=== PATIENT | female | born 1980 | race Caucasian/White ===

== ENCOUNTER 2016-12-24 02:18 | Inpatient (IN) | payer SELFPAY ==
[~2016-12-24] VITALS: Ht 152.4 cm; Wt 105.0 kg
[2016-12-24] VITALS (11 sets, daily range): BP systolic 113–145; BP diastolic 68–81
[2016-12-24] MEDS ORDERED: PENICILLIN G POTASSIUM IV 5 MU in D5W MINI-BAG PLUS 100 ML IV STA (02:34)
[2016-12-24] MEDS ORDERED: OXYTOCIN 30 UNITS IN 0.9% NaCl 500ML IV BAG (J2590) As Ordered ONE (02:50)
[2016-12-24 03:02] LABS: BASO % 0.2 % (0.0-1.0); EOS # 0.1 K/mm3 (0.0-0.50); EOS % 1.5 % (0.0-3.0); LARGE UNSTAINED CELL # 0.3 K/mm3 (0.0-0.4); LARGE UNSTAINED CELL % 4.1 % (0.0-4.0); LYMPH # 1.5 K/mm3 (1.5-4.5); LYMPH % 21.9 % (24.0-44.0); MEAN CORPUSCULAR HEMOGLOBIN 31.7 pg (27.0-33.0); MEAN CORPUSCULAR HGB CONC 35.5 g/dl (32.0-36.5); MEAN CORPUSCULAR VOLUME 89.1 fl (80.0-96.0); MONO # 0.3 K/mm3 (0.0-0.8); MONO % 4.7 % (0.0-5.0); NEUTROPHILS # 4.8 K/mm3 (1.8-7.7); NEUTROPHILS % 67.6 % (36.0-66.0); PLATELET COUNT, AUTOMATED 213 k/mm3 (150-450)
[2016-12-24 03:41] LABS: CONTROL LINE INT CTR LINE PRESENT; HIV SCRN NEGATIVE (NEGATIVE); HIV SCRN1 NEGATIVE (NEGATIVE)
[2016-12-24] MEDS ORDERED: LACTATED RINGER'S 1000 ML IV STA (05:48)
[2016-12-24] MEDS ORDERED: OXYTOCIN INJ 10 UNITS/ML VIAL (J2590) As Ordered ONE ×2 (06:00→06:01)
[2016-12-24] MEDS ORDERED: BICITRA 30ML SOLN UDC PO ONE (06:00)
[2016-12-24] MEDS ORDERED: MORPHINE PRES-FREE INJ 10 MG/10 ML VIAL (J2274) As Ordered ONE (06:01)
--- NOTE | 2016-12-24 06:17 | HPE ---
DATE OF ADMISSION: 12/24/2016 36-year-old, (G) 17, para (P) 11, female 39 and 5/7 weeks gestation by last menstrual period (LMP) plus ultrasound who presents with spontaneous loss of fluid on the morning of admission. She began to contract. The contractions became more intense. The patient is Bhanu and has a history of prior section for her first . The only reason she presented to the hospital for delivery is due to an estimated weight of 10 pounds by a recent ultrasound. She does not think she is capable of delivering a baby that big. COURSE: The patient has had minimal care. She claims to have had an ultrasound in [place] four days prior to admission. She was told the baby's estimated weight was 10 pounds. There is no record of any ultrasound at the hospital in [place]. MEDICAL HISTORY: Noncontributory. SURGERIES: section times one. ALLERGIES: No known allergies. SOCIAL HISTORY: The patient is [facility]. She lives in [place], [place], with her and family. FAMILY HISTORY: Noncontributory. PHYSICAL EXAMINATION: Blood pressure 130/78. Pulse 84. She appears mildly uncomfortable. HEAD AND NECK EXAM: Normal. LUNGS: Clear. HEART: Regular rate and rhythm. ABDOMEN: Nontender. Gravid. heart tones Category 1. Contractions every 5 minutes. STERILE VAGINAL EXAM: Grossly ruptured of clear fluid. Cervix 5 cm, 100% effaced, -2 station, vertex. EXTREMITIES: Nontender. LABS: No labs done. ASSESSMENT: 36-year-old, G17, P11 female at 39 and 5/7 weeks with rupture of membranes in active labor. The patient has a prior section and does desire vaginal if possible. The patient is admitted on 12/24/2016. The risks of vaginal after () are discussed. LUL
[2016-12-24] MEDS ORDERED: PENICILLIN G POTASSIUM IV 2.5 MU in D5W 100 ML IV SCH (07:00)
[2016-12-24] MEDS ORDERED: ONDANSETRON 4MG/2ML VIAL (J2405) IV PRN ×2 (07:30→07:45)
[2016-12-24] MEDS ORDERED: MEASLES,MUMPS,RUBELLA VACCINE INJ (MMR-II) (90707) SC SCH (07:30)
[2016-12-24] MEDS ORDERED: RHOGAM 300 MCG (1500 IU) INJ (J2790) IM SCH (07:30)
[2016-12-24] MEDS ORDERED: PERCOCET 5MG/325MG TAB PO PRN ×2 (07:30)
[2016-12-24] MEDS ORDERED: fentaNYL 100 MCG/2 ML INJECTION (J3010) IV PRN (07:45)
[2016-12-24] MEDS ORDERED: MEPERIDINE INJ 25 MG/ML VIAL (J2175) IV PRN (07:45)
[2016-12-24] MEDS ORDERED: diphenhydrAMINE INJ 50MG/ML VIAL (J1200) IV PRN (07:45)
[2016-12-24] MEDS ORDERED: KETOROLAC 30 MG/ML VIAL (J1885) IV PRN (07:45)
[2016-12-24] MEDS ORDERED: NALBUPHINE HCL 10 MG/ML AMP (J2300) IV PRN (07:45)
[2016-12-24] MEDS ORDERED: OXYTOCIN DRIP 30 UNITS in APPROPRIATE DILUENT 1 EA IV ONE (08:00)
[2016-12-24] MEDS: LR 1,000 ML IV SCH ×2 (08:00→16:00)
--- NOTE | 2016-12-24 08:10 | RO ---
DATE OF PROCEDURE: 12/24/2016 PREPROCEDURE DIAGNOSES: 1. 39+ weeks, labor. 2. Arrest of dilation. POSTPROCEDURE DIAGNOSES: 1. 39+ weeks, labor. 2. Arrest of dilation. PROCEDURE: Repeat low transverse section. SURGEON: Dr. Omar Bautista SECURITIES ATTORNEY: Dr. Nando Owens ANESTHESIA: Spinal. ESTIMATED BLOOD LOSS: 600 mL. FINDINGS: 10 pounds 3 ounce female infant. scores of 8 and 9. Vertex position. Normal uterus, fallopian tubes, and ovaries. DESCRIPTION OF PROCEDURE: The patient was taken to the operating room where spinal anesthesia was induced. She was prepped and draped in a sterile fashion in the supine position. Machado catheter was placed. Pfannenstiel skin incision was made with a scalpel to get through to the fascia. The fascia was nicked and extended. The fascia was dissected off the rectus muscles. The rectus muscles were divided in the midline. The peritoneal cavity was entered. Bladder flap was created. Curvilinear incision was made in the lower uterine segment until clear fluid was noted. This was extended manually. The was delivered in the vertex position without difficulty. Cord was doubly clamped and cut. The infant was handed off to the awaiting nurses. The placenta was expressed. The uterus was then exteriorized and cleared of clots and debris. The uterine incision was closed with #0 Vicryl in a running lock fashion. A second imbricating layer of #0 Vicryl was placed. The uterus was placed back in the abdominal cavity. The peritoneum was closed with #2-0 Vicryl in a running fashion. The fascia was closed with #0 Vicryl. The deep layer was irrigated and closed with #2-0 chromic. Skin was closed with #4-0 Monocryl subcuticular sutures. Sponge, instrument and needle counts were correct.
[2016-12-24 08:31] LABS: HBsAg Prenatal NEGATIVE (NEGATIVE)
[2016-12-24] MEDS: PRENATAL VITAMINS CHEWABLE TABLET PO SCH (09:00)
[2016-12-24] MEDS: KETOROLAC 30 MG/ML VIAL (J1885) IV SCH ×3 (09:55→21:00)
[2016-12-24] MEDS ORDERED: DOCUSATE SODIUM 100 MG CAP PO PRN (21:00)
[2016-12-25] MEDS: KETOROLAC 30 MG/ML VIAL (J1885) IV SCH (02:00)
[2016-12-25 06:18] VITALS: BP 123/80
[2016-12-25 06:37] LABS: MEAN CORPUSCULAR HEMOGLOBIN 31.6 pg (27.0-33.0); MEAN CORPUSCULAR HGB CONC 35.5 g/dl (32.0-36.5); MEAN CORPUSCULAR VOLUME 89.2 fl (80.0-96.0); RED CELL DISTRIBUTION WIDTH 14.5 % (11.5-14.5); WHITE BLOOD COUNT 8.1 K/mm3 (4.0-10.0)
[2016-12-25] MEDS: PRENATAL VITAMINS CHEWABLE TABLET PO SCH (07:46)
--- NOTE | 2016-12-25 07:59 | DSES ---
DATE OF ADMISSION: 12/24/2016 DATE OF DISCHARGE: HISTORY: 36-year-old, (G) 17, para (P) 11 female at 39 and 5/7 weeks gestation who presented with regular contractions every 3-4 minutes for the last several hours. The patient is Bhanu. She presented to the hospital because ultrasound several days prior suggested the baby had an estimated weight of 10 pounds. She has had one prior section. She was not convinced she could deliver a baby this large vaginally so she presented to the hospital as opposed to try to deliver at home. She had no care other than the one ultrasound towards the end of . HOSPITAL COURSE: The patient presented in the business development engineer hours of 12/24/2016. She was 5 cm dilated with ruptured membranes and active labor. Due to the fact that she had successfully delivered vaginally after her first section she was allowed to labor. She did not progress past 8 cm. The head was also quite high. She was diagnosed with arrest of dilation. On 12/24/2016, the patient underwent primary low transverse section for a 10 pound 3 ounce female . The procedure was without complication. Her postoperative course was unremarkable. She had adequate return of bladder and bowel function. She was deemed stable for discharge on postoperative day one. ADMISSION DIAGNOSES: 1. at 39 weeks. 2. Arrest of labor. DISCHARGE DIAGNOSIS: Delivered. PROCEDURE: Repeat low transverse section. DISPOSITION: Instructions reviewed. Patient will followup with Dr. Bautista in 2 weeks.
[2016-12-25] MEDS ORDERED: IBUPROFEN 800 MG TAB PO SCH (10:00)
[2016-12-25] MEDS ORDERED: IBUP-1114 PO (11:14)
== END 2016-12-25 13:37 | disposition home or self-care (01) | DRG 540 ==
LOC: M LDO 02:18 → M LDI 02:24 → M OBS 12:45
PROVIDERS: ADMIT Specialist; ATTEND Specialist
PROC: 10D00Z1 Extraction of Products of Conception, Low, Open Approach (ICD-10-PCS; principal; 2016-12-24 06:09)
DX: O34.219 Maternal care for unspecified type scar from previous cesarean delivery (principal); O62.0 Primary inadequate contractions; Z37.0 Single live birth; Z3A.39 39 weeks gestation of pregnancy

== ENCOUNTER → 2018-04-15 | Outpatient (CLI) | payer SELFPAY ==
[~2018-04-15] MED LIST: IBUP-1114 PO; IBUP1TAB7 PO; PERCOCET PO; PRENTAB9 PO
--- NOTE | 2018-04-15 17:34 | REP ---
Clinical: For care. Evaluate for possible twin gestation. Comparison: None . Findings: Examination demonstrates a single live intrauterine in transverse (head to maternal left) presentation. motion is identified by technologist. Placenta is noted fundal and grade grade 1 without evidence for placenta previa or abruption. Amniotic fluid volume is normal. Cervix measures 4.3 cm in length and appears closed. No evidence for nuchal cord. Gestational age by LMP 34 weeks 3 days with HANNAH 05/24/2018 . Gestational age by current measurements 33 weeks 6 days with HANNAH 05/28/2018 . FHR equals 147 beats per minute. BPD 8.4 cm 33-week 6 days HC 30.5 cm 34 weeks 0 day AC 29.6 cm 33 weeks 4 days FL 6.5 cm 33 weeks 4 days HL 5.9 cm 34 weeks 1 day HC/AC ratio 1.03 Estimated weight 2236 grams ( 33rd percentile). Amniotic fluid index: 23.9 cm (8.4 - 24.8) Umbilical cord SD ratio: 2.20 (2.00 - 3.00) Anatomical assessment demonstrates normal structures including cranium, cavum, facial features, lungs, four-chamber heart, diaphragm, stomach, cord insertion/three-vessel cord, bladder, spine, and lower extremities. Impression: Single live advanced gestation in transverse presentation demonstrating appropriate interval growth. Limited by advanced age. No gross abnormalities are identified. Electronically Signed by Edvin Marquez MD 04/15/2018 05:25 P
== END ==
LOC: M RAD 13:24
PROVIDERS: ATTEND Specialist
DX: Z34.83 Encounter for supervision of other normal pregnancy, third trimester (principal); Z3A.34 34 weeks gestation of pregnancy

== ENCOUNTER 2018-05-02 23:24 | Inpatient (IN) | payer SELFPAY ==
[~2018-05-02] VITALS: Ht 152.4 cm; Wt 100.8 kg
[~2018-05-02 23:24] MED LIST changes: -IBUP1TAB7 PO; -PERCOCET PO; -PRENTAB9 PO
[2018-05-02 23:55] VITALS: BP 151/95
[2018-05-03] VITALS (31 sets, daily range): BP systolic 91–178; BP diastolic 51–102
[2018-05-03] MEDS ORDERED: PRENTAB9 PO (00:03)
[2018-05-03] MEDS ORDERED: PENICILLIN G POTASSIUM IV 5 MU in D5W MINI-BAG PLUS 100 ML IV STA ×2 (00:25→00:52)
[2018-05-03] MEDS ORDERED: LACTATED RINGER'S 1000 ML IV STA (00:25)
[2018-05-03] MEDS ORDERED: LR 1,000 ML IV SCH ×2 (00:25→09:15)
--- NOTE | 2018-05-03 00:46 | NUR ---
L&D H&P HPI: 37 year old G18 P-12-0-5-11 at 37+0 weeks estimated gestation. Expected date of confinement: 05/24/18. dated by her LMP, which was c/w a third trimester ultrasound on 04/15/18. Presents today with complaint of ruptured membranes/clear fluid and frequent painful uterine contractions. Denies vaginal bleeding. Reports regular movement. course notable for the followin. Grand multiparity 2. History of two prior low transverse sections. h/o multiple after first LTCS ( x 10). Most recent LTCS at 39+ weeks in Nov [address] Bautista for arrest of dilation/LGA 10lbs 3oz. DESIRES TOLAC. 3. Scant care (one appointment); suboptimal dating US but c/w sure LMP (on 04/15/18); Pt is Rastafarian. 4. Satisfied parity; requesting permanent tubal sterilization if she has another . labs: Blood type A+ Radiology/OB US: no anomalies or placental abnormalities detected. 33rd percentile (04/15/18) History Past medical history: none reported Surgical history: LTCS x 2 Medications: PNV Allergies: NKDA DIESEL ENGINE SPECIALIST history: no dysplasia or STI/gHSV OB history: 02/2001: PLTCS for term breech ([place]). [id number]: x 10, all term and apparently uncomplicated (largest baby via = 9lbs 9oz). Nov 2016: LTCS x 1. Arrest of dilation at 8cm, LGA: 10lbs 3oz. B/w [id number]: SAB x 5; all first TM and spontaneously resolved. Social history: Rastafarian. No t/e/d. Of note, one child in farming accident at age 7 in 2014 Family history: no MR, VTE Objective Vitals: Normotensive, normal heart rate, afebrile Heart: Regular rate and rhythm. No murmurs, rubs or gallops. Lungs: Clear to auscultation bilaterally. No wheezes, crackles, rales or rhonchi. Abdomen: Uterine fundal height consistent with dates. No guarding or rebound tenderness. Extremities: No clubbing, cyanosis or edema. Normal deep tendon reflexes. Sterile vaginal exam: 6-7 cm, 100 %effacement, 0 station, cephalic, grossly ruptured/clear fluid. External monitoring: heart rate category 1 Tocodynamometer: contractions occurring every 2-3min. US,[place]: cephalic presentation confirmed. Assessment/Plan 37 year old ,0,5,11 at 37+0 weeks gestation. Diagnosis: active labor at term; TOLAC. Reassuring and maternal status. -Admit to labor and delivery with routine labs and orders; lab panel ordered (not done during scant care) -IV access x 2 given PPH/peripartum risk. -External monitoring and tocodynamometer -Pediatrics and anesthesia consultations as needed. -GBS prophylaxis with IV penicillin -Augment labor with Pitocin as needed -Desires permanent tubal sterilization if she has another . Dr. Law Ray, DO, FACOG
[2018-05-03 00:51] LABS: BASO % 0.2 % (0.0-1.0); EOS # 0.1 10^3/uL (0.0-0.50); EOS % 1.6 % (0.0-3.0); HEMATOCRIT 35.2 % (36.0-47.0); HEMOGLOBIN 12.2 g/dl (12.0-15.5); LYMPH # 2.2 10^3/uL (1.5-4.5); LYMPH % 24.9 % (24.0-44.0); MEAN CORPUSCULAR HEMOGLOBIN 30.1 pg (27.0-33.0); MEAN CORPUSCULAR HGB CONC 34.7 g/dl (32.0-36.5); MEAN CORPUSCULAR VOLUME 86.9 fl (80.0-96.0); MONO # 0.7 10^3/uL (0.0-0.8); MONO % 8.3 % (0.0-5.0); NEUTROPHILS # 5.8 10^3/uL (1.8-7.7); NEUTROPHILS % 64.1 % (36.0-66.0); PLATELET COUNT, AUTOMATED 210 10^3/uL (150-450); RED BLOOD COUNT 4.05 10^6/uL (4.00-5.40)
[2018-05-03] MEDS ORDERED: FENTANYL 2MCG/ML ROPIVACAINE 0.2% IN 0.9% NACL 100ML IVBAG As Ordered ONE (01:55)
[2018-05-03] MEDS ORDERED: ePHEDrine SULFATE 25 MG/5 ML(5MG/ML) SYRINGE IV PRN (03:00)
[2018-05-03] MEDS ORDERED: diphenhydrAMINE INJ 50MG/ML VIAL (J1200) IV PRN ×2 (03:00→10:15)
[2018-05-03] MEDS ORDERED: FENTANYL/ROPIVACAINE/NACL BAG 100 ML EPIDURAL SCH (03:00)
[2018-05-03] MEDS ORDERED: EPIDURAL/PCA KEYS XX PRN (03:00)
[2018-05-03] MEDS ORDERED: LACTATED RINGER'S 1000 ML IV PRN (03:00)
[2018-05-03] MEDS ORDERED: ONDANSETRON 4MG/2ML VIAL (J2405) IV PRN ×4 (03:00→10:15)
[2018-05-03] MEDS ORDERED: NALOXONE INJ 0.4 MG/1 ML VIAL (J2310) IV PRN ×3 (03:00→10:15)
[2018-05-03] MEDS ORDERED: REFRIGERATOR IV KEYS XX PRN (03:00)
[2018-05-03] MEDS ORDERED: EPIDURAL COMMENT XX SCH (03:00)
[2018-05-03] MEDS ORDERED: PENICILLIN G POTASSIUM IV 2.5 MU in APPROPRIATE DILUENT 1 EA IV SCH ×2 (04:30→05:00)
[2018-05-03] MEDS ORDERED: OXYTOCIN DRIP 30 UNITS in APPROPRIATE DILUENT 1 EA IV SCH ×3 (04:45→10:19)
--- NOTE | 2018-05-03 06:37 | NUR ---
Progress Note Patient comfortable with epidural. Increased VB. RN concerned about arrest of dilation / edematous cervix over the past 4-5 hours. Mild HTN, afebrile SVE: 7-8cm/100/0; anterior lip of cervix is significantly swollen. Unable to reduce. EFM: reassuring, BL 130, mod azra, +accels, intermittent variable decel. [place]: ctxs every 2-3min A/P: Arrest of dilation, 8cm. Reassuring maternal and status. -Decision made to proceed with RLTCS / BTL. -Preparations for OR being made. Sofia Ray DO
[2018-05-03] MEDS ORDERED: ceFAZolin 2 GM/D5W 50 ML IV BAG (J0690 PER 500MG) As Ordered ONE (06:39)
[2018-05-03] MEDS ORDERED: BICITRA 30ML SOLN UDC As Ordered ONE (06:40)
[2018-05-03] MEDS ORDERED: AZITHROMYCIN INJ 500 MG, VIAL MATE ADAPTER 1 EACH in D5W 250 ML IV ONE (07:00)
[2018-05-03] MEDS ORDERED: BICITRA 30ML SOLN UDC PO ONE (07:00)
[2018-05-03] MEDS ORDERED: OXYTOCIN INJ 10 UNITS/ML VIAL (J2590) As Ordered ONE (07:19)
[2018-05-03] MEDS ORDERED: MORPHINE PRES-FREE INJ 10 MG/10 ML VIAL (J2274) As Ordered ONE (07:42)
[2018-05-03] MEDS ORDERED: ONDANSETRON 4MG/2ML VIAL (J2405) As Ordered ONE (07:44)
[2018-05-03] MEDS ORDERED: KETOROLAC 60 MG/2 ML VIAL (J1885) As Ordered ONE (07:44)
[2018-05-03] MEDS ORDERED: OXYTOCIN 30 UNITS IN 0.9% NaCl 500ML IV BAG (J2590) As Ordered ONE ×2 (08:42→10:18)
[2018-05-03] MEDS: LR 1,000 ML IV SCH ×2 (08:49→14:47)
--- NOTE | 2018-05-03 08:56 | NUR ---
Operative Note Date of procedure: 05/03/18 Procedure: Repeat low-transverse section with [place] bilateral tubal ligation Anesthesia: Epidural Preoperative diagnosis: Term gestation, 37 weeks. History of prior low transverse section x 2 Satisfied parity Arrest of dilation Obesity Advanced maternal age Postoperative diagnosis: same Indication: 37yo G18 now P13. History of two prior sections. Unsuccessful trial of labor after arriving in active labor. Arrest of dilation at 8cm. Primary surgeon: Law Ray D.O., F. AAlla. Economic Forecaster: Jd Neff MD (crucial for surgical site exposure and assistance with delivery) Estimated blood loss: 700 ml IV fluids administered: 1000 ml crystalloid Drains: Machado catheter. Urine output: 100 ml Robinson data: Apgars 7 and 8. Birthweight 3100g, 6lbs 13oz. Male. Preoperative/prophylactic antibiotics: Ancef 2 g IV (given within 30 minutes prior to surgical start time). Azithromycin 500mg IV x 1. Intraoperative findings: Thin lower uterine segment. Normal adnexa/ovaries bilaterally. Specimen(s): segments of bilateral fallopian tubes. Procedure: The patient was counseled and consented on the risks, benefits, indications and alternatives of the procedure. Informed consent was obtained and placed in the c corona. She was taken to the operating room with an IV running. She was placed on the operating table. Spinal anesthesia was administered without any difficulty and found to be adequate. She was placed in the dorsal supine position with a leftward tilt. Sequential compression devices were placed on the lower extremities. A Machado catheter was placed under sterile conditions. She was sterilely prepped and draped. A surgical timeout was performed per protocol. Spinal anesthesia was again found to be adequate. Using the 10 blade a Pfannenstiel incision was performed. The 10 blade was used to dissect down to the level of the rectus sheath fascia. The rectus sheath fas javan was incised at the midline, and the fascial incision was extended with Torres scissors. Humphrey clamps were used to grasp the superior and inferior aspect of the fascial incision and the rectus muscle bellies were dissected off sharply and bluntly. The midline was identified and the rectus muscle bellies were manually . The peritoneum was identified and clamped with hemostats and elevated. The peritoneum was then incised with Metzenbaum scissors. Entry into the intraperitoneal cavity was achieved. The peritoneal opening was extended with manual stretch . There was good visualization of both the bladder and the lower uterine segment. The bladder retractor was placed. The vesicouterine peritoneum was dissected with Metzenbaum scissors and blunt dissection. Bladder retractor was repositioned. A low transverse uterine incision was made with a new 10 blade. The hysterotomy was extended with manual stretch. The amniotic sac was protruding and then artificially ruptured. Clear amniotic fluid was noted. The baby's head delivered through the hysterotomy with ease. The remainder of the body delivered with ease. The cord was doubly clamped and cut and the baby was handed off to awaiting care. See data above. The placenta was manually removed and noted to be fully intact. The uterus was exteriorized. The intrauterine cavity was cleared of all clot and debris with a laparotomy sponge. The hysterotomy was closed with 0 Vicryl in running, locked fashion. A second imbricating closure was performed over the initial layer closure using 0 Vicryl The hysterotomy was noted to be hemostatic. The posterior cul-de-sac was irrigated and cleared of all clot and debris. Attention was turned to performing the [place] bilateral tubal ligation. The right fallopian tube was followed out to fimbriated end. The mid isthmic portion was grasped with the Holden and elevated. A window was created within the underlying broad ligament with the Bovie. Plain gut suture was used to tie the 2 ends, and the intervening segment was excised with Metzenbaum scissors. In the same exact fashion, a [place] tubal ligation was p erformed on the left side. Both fallopian tube segments were sent to pathology for permanent section. Both adnexa were noted to be hemostatic. The uterus was replaced back into the abdomen. The paracolic gutters were cleared of all clot and debris with damp laparotomy sponges. The hysterotomy is reinspected and noted to be hemostatic. The adnexa were reinspected and noted to be hemostatic. Sponge, needle and instrument counts were correct. The peritoneum was closed with 3-0 Vicryl in running fashion. The rectus muscle bellies were reapproximated with 3-0 Vicryl with a series of interrupted sutures. The rectus muscle bellies were noted to be hemostatic. The fascia was closed with 0 Vicryl in running fashion. Sponge, needle and instrument counts were again correct. The subcutaneous layer was irrigated. Small subcutaneous bleeders were cauterized with Bovie. The subcutaneous layer was reapproximated with 3-0 Vicryl in running fashion. The skin was closed with 3-0 Monocryl in subcuticular fashion. A bandage was placed over the closed incision. The final sponge, instrument and needle count was correct. She tolerated the entire procedure very well. She was transferred to the PACU in good and stable condition. Dr. Law Ray D.O., F.A.C.O.G
[2018-05-03] MEDS ORDERED: **PENDING PCN ENTRY XX SCH (09:00)
[2018-05-03] MEDS ORDERED: MEASLES,MUMPS,RUBELLA VACCINE INJ (MMR-II) (90707) SC SCH (09:00)
[2018-05-03] MEDS ORDERED: PERCOCET 5MG/325MG TAB PO PRN ×2 (09:00)
[2018-05-03] MEDS ORDERED: PROMETHAZINE 25 MG TAB PO PRN (09:00)
[2018-05-03] MEDS ORDERED: RHOGAM 300 MCG (1500 IU) INJ (J2790) IM SCH (09:00)
[2018-05-03] MEDS ORDERED: MORPHINE 10 MG/ML 1ML VIAL (J2270) IV PRN (09:15)
[2018-05-03] MEDS ORDERED: fentaNYL 100 MCG/2 ML INJECTION (J3010) IV PRN (09:15)
[2018-05-03] MEDS ORDERED: NALBUPHINE HCL 10 MG/ML AMP (J2300) IV PRN ×2 (09:15→10:15)
[2018-05-03] MEDS ORDERED: METOCLOPRAMIDE INJ 10MG/2ML VIAL (J2765) IV PRN (10:15)
[2018-05-03] MEDS: PRENATAL VITAMINS CHEWABLE TABLET PO SCH (14:46)
[2018-05-03] MEDS: DOCUSATE SODIUM 100 MG CAP PO SCH ×2 (14:46→20:23)
[2018-05-03] MEDS: KETOROLAC 30 MG/ML VIAL (J1885) IV SCH ×2 (14:47→20:23)
[2018-05-04] VITALS (7 sets, daily range): BP systolic 106–129; BP diastolic 53–65
[2018-05-04] MEDS: KETOROLAC 30 MG/ML VIAL (J1885) IV SCH (02:25)
[2018-05-04 06:38] LABS: HEMATOCRIT 29.7 % (36.0-47.0); MEAN CORPUSCULAR HEMOGLOBIN 30.2 pg (27.0-33.0); MEAN CORPUSCULAR HGB CONC 33.3 g/dl (32.0-36.5); MEAN CORPUSCULAR VOLUME 90.5 fl (80.0-96.0); PLATELET COUNT, AUTOMATED 167 10^3/uL (150-450); RED BLOOD COUNT 3.28 10^6/uL (4.00-5.40); WHITE BLOOD COUNT 8.6 10^3/uL (4.0-10.0)
[2018-05-04 06:41] LABS: HEMOGLOBIN 9.9 g/dl (12.0-15.5)
[2018-05-04] MEDS ORDERED: PERCOCET PO (07:48)
--- NOTE | 2018-05-04 07:57 | NUR ---
Postoperative Day 1 Status post repeat low transverse section / BTL, uncomplicated. Subjective Pain is well controlled. Lochia is decreasing and minimal. Voiding spontaneously. Tolerating a regular diet. Ambulating without any assistance. Denies any subjective fever, chills, nausea, vomiting, headache, visual changes, shortness of breath, chest pain. Breast feeding. Objective Vitals: Normotensive, normal heart rate, afebrile, adequate urine output. Heart: regular, rate, and rhythm. no murmurs/gallops/rubs Lungs: clear to auscultation bilaterally, no wheezes/crackles/rales/ronchi Abd: soft, nontender, nondistended, uterine fundus is 2cm below umbilicus and firm Incision: clean, dry, intact Ext: no significant edema, nontender, negative Doroteo's bilaterally. Preoperative H/H: 12.2/35.2 Postoperative H/H: 9.9/29.7 Assessment/Plan: Postoperative day 1 status post repeat low transverse section / BTL. Recovering well. Hemodynamically stable, afebrile, good pain control. -Routine care -Discharge to home tomorrow. -Routine infectious, fever, pain, and bleeding precautions reviewed -Incision/wound care precautions reviewed. Honey Sinclair.O., F.A.C.O.G.
[2018-05-04] MEDS: PRENATAL VITAMINS CHEWABLE TABLET PO SCH (09:51)
[2018-05-04] MEDS: DOCUSATE SODIUM 100 MG CAP PO SCH ×2 (09:51→20:46)
[2018-05-04] MEDS: IBUPROFEN 800 MG TAB PO SCH ×2 (09:51→17:55)
[2018-05-04 10:48] LABS: HEPATITIS C VIRUS ABY INDEX 0.1 INDEX (<0.8); RUBELLA IgG QUALITATIVE IMMUNE (IMMUNE)
[2018-05-05 02:15] VITALS: BP 130/65
[2018-05-05] MEDS: IBUPROFEN 800 MG TAB PO SCH ×2 (02:33→10:02)
[2018-05-05 06:00] VITALS: BP 134/70
[2018-05-05] MEDS ORDERED: IBUP1TAB7 PO (06:06)
--- NOTE | 2018-05-05 06:11 | DS.PDOC ---
Discharge Summary General Date of Admission May 03, 2018 at 00:07 Date of Discharge 05/05/2018 Attending Physician: VANNA WORLEY DO Discharge Summary PROCEDURES PERFORMED DURING STAY: repeat section. ADMITTING DIAGNOSES: 1. 37+ weeks gestation. 2. Active labor 3. TOLAC 4. AMA 5. History of a low transverse section x2 DISCHARGE DIAGNOSES: 1. Repeat with permanent tubal sterilization. COMPLICATIONS/CHIEF COMPLAINT: LABOR. HISTORY OF PRESENT ILLNESS: Patient is a 37-year-old female who is now a [id number] at 37+ weeks gestation who presented to L&D in active labor. She had 1 visit. Her history is significant for a history of 2 prior sections, history of macrosomic babies, and lack of care with suboptimal dating. A section was performed due to arrest of dilation. The patient had decided prior to section that she desired permanent tubal sterilization. DISCHARGE MEDICATIONS: Please see below. ALLERGIES: Please see below. PHYSICAL EXAMINATION ON DISCHARGE: VITAL SIGNS: Please see below. GENERAL: A+O x3 RESPIRATORY EXAMINATION: Regular rate. NO use of accessory muscles. ABDOMINAL EXAMINATION: dressing present and intact. EXTREMITIES: generalized edema bilateral lower legs and feet. SKIN: earm, dry, without unusual rashes or lesions. LABORATORY DATA: Please see below. ACTIVITY: As tolerated. DIET: regular DISCHARGE INSTRUCTIONS: 1. Patient to be discharged home. She is to follow-up in the office in 2 weeks and 6 weeks . 2. Education done on incision care, medications for pain management, infection at the site, timing of removal of the dressing, and hemorrhage reviewed. DISCHARGE CONDITION: Stable. Vital Signs/I&Os Vital Signs Date Time Temp Pulse Resp B/P (MAP) Pulse Ox O2 Delivery O2 Flow Rate FiO2 05/05/18 06:00 97.5 91 17 134/70 (91) 98 05/04/18 18:00 Room Air Laboratory Data Labs 24H Laboratory Tests 2 05/04/18 06:23: Nucleated Red Blood Cells % (auto) 0.0 CBC/BMP Laboratory Tests 05/04/18 06:23 Red Blood Count 3.28 L, Mean Corpuscular Volume 90.5, Mean Corpuscular Hemoglobin 30.2, Mean Corpuscular Hemoglobin Concent 33.3, Red Cell Distribution Width 13.6 Microbiology Microbiology 05/03/18 Group B Streptococcus Screen ([facility]RET), Received Pending Discharge Medications Scheduled Multivitamins/ ( 27-0.8 mg) 1 Tab Tab, 1 TAB PO DAILY, (Reported) Scheduled PRN Ibuprofen (Ibuprofen) 800 Mg Tab, 1 TAB PO TIDP PRN for PAIN Oxycodone/Acetaminophen (Percocet 5MG/325MG Tablet) 1 Tab Tab, 1 TAB PO BIDP PRN for pain Allergies Coded Allergies: No Known Allergies (Unverified , 12/24/16) FELIBERTO GARCIA CNM May 05, 2018 06:11
[2018-05-05] MEDS: DOCUSATE SODIUM 100 MG CAP PO SCH (09:04)
[2018-05-05] MEDS: PRENATAL VITAMINS CHEWABLE TABLET PO SCH (09:05)
== END 2018-05-05 15:20 | disposition home or self-care (01) | DRG 540 ==
LOC: M LDO 23:24 → M LDI 05-03 00:07 → M OBS 05-03 10:55
PROVIDERS: ADMIT Obstetrics & Gynecology; ATTEND Obstetrics & Gynecology
PROC: 0UB70ZZ Excision of Bilateral Fallopian Tubes, Open Approach (ICD-10-PCS; 2018-05-03)
PROC: 10D00Z1 Extraction of Products of Conception, Low, Open Approach (ICD-10-PCS; principal; 2018-05-03 07:12)
DX: O34.211 Maternal care for low transverse scar from previous cesarean delivery (principal); E66.9 Obesity, unspecified; O99.214 Obesity complicating childbirth; Z37.0 Single live birth; Z3A.37 37 weeks gestation of pregnancy; O09.31 Supervision of pregnancy with insufficient antenatal care, first trimester; O09.32 Supervision of pregnancy with insufficient antenatal care, second trimester; O09.33 Supervision of pregnancy with insufficient antenatal care, third trimester; O09.523 Supervision of elderly multigravida, third trimester; Z30.2 Encounter for sterilization; O62.0 Primary inadequate contractions

== ENCOUNTER 2022-01-15 14:23 | Inpatient (IN) | payer SELFPAY ==
[~2022-01-15] VITALS: Ht 152.4 cm; Wt 92.1 kg
[~2022-01-15 14:23] MED LIST changes: +IBUP1TAB7 PO; +PERCOCET PO; +PRENTAB9 PO
[2022-01-15 15:11] LABS: BASO % 0.2 % (0.0-1.0); HEMATOCRIT 38.7 % (36.0-47.0); HEMOGLOBIN 13.2 g/dl (12.0-15.5); LYMPH # 1.6 10^3/uL (1.5-5.0); LYMPH % 10.4 % (24.0-44.0); MEAN CORPUSCULAR HEMOGLOBIN 29.8 pg (27.0-33.0); MEAN CORPUSCULAR HGB CONC 34.1 g/dl (32.0-36.5); MEAN CORPUSCULAR VOLUME 87.4 fl (80.0-96.0); MONO # 0.6 10^3/uL (0.0-0.8); MONO % 3.5 % (2.0-8.0); NEUTROPHILS # 13.5 10^3/uL (1.5-8.5); NEUTROPHILS % 85.3 % (36.0-66.0); PLATELET COUNT, AUTOMATED 293 10^3/uL (150-450); RED BLOOD COUNT 4.43 10^6/uL (4.00-5.40); WHITE BLOOD COUNT 15.8 10^3/uL (4.0-10.0)
[2022-01-15 15:23] LABS: INR 0.95; PROTHROMBIN TIME 13.1 SECONDS (12.7-14.5)
[2022-01-15 15:24] LABS: PARTIAL THROMBOPLASTIN TIME 32.7 SECONDS (25.9-37.0)
[2022-01-15] MEDS ORDERED: PIPERACILLIN/TAZOBACTAM SOD 4.5 GM in D5W MINI-BAG PLUS 50 ML IV ONE (15:30)
[2022-01-15] MEDS ORDERED: NS 2,780 ML in IV 1 EA IV ONE (15:30)
[2022-01-15 15:50] LABS: ALBUMIN 4.2 GM/DL (3.2-5.2); ALT/SGPT 28 U/L (12-78); BILIRUBIN,DIRECT 0.2 MG/DL (0.0-0.2); BILIRUBIN,TOTAL 1.1 MG/DL (0.2-1.0); BLOOD UREA NITROGEN 6 MG/DL (7-18); CALCIUM LEVEL 9.2 MG/DL (8.5-10.1); CARBON DIOXIDE LEVEL 25 MEQ/L (21-32); CHLORIDE LEVEL 99 MEQ/L (98-107); CREATININE FOR GFR 0.62 MG/DL (0.55-1.30); GLOMERULAR FILTRATION RATE > 60.0 (>58); GLUCOSE, FASTING 134 MG/DL (70-100); LIPASE 108 U/L (73-393); NT-PRO BNP 121 PG/ML (<125); POTASSIUM SERUM 3.8 MEQ/L (3.5-5.1); SODIUM LEVEL 131 MEQ/L (136-145); TOTAL PROTEIN 8.1 GM/DL (6.4-8.2)
[2022-01-15 15:51] LABS: CK-MB VALUE MASS < 1.0 NG/ML (<3.6); CPK CREATINE PHOSPHOKINASE 72 U/L (26-192); MB/CK RELATIVE INDEX 1.39 (< OR =4)
[2022-01-15] MEDS ORDERED: ISOVUE-370 76% 100ML VIAL As Ordered ONE (16:04)
[2022-01-15 17:08] LABS: RSV AMPLIFICATION NEGATIVE (NEGATIVE)
[2022-01-15] MEDS ORDERED: MAALOX 30 ML SUSP *UDC PO PRN (17:45)
[2022-01-15] MEDS ORDERED: MOM 30ML SUSPENSION UDC PO PRN (17:45)
[2022-01-15] MEDS ORDERED: ACETAMINOPHEN TAB 650MG DOSE (2X325MG) PO PRN (17:45)
[2022-01-15] MEDS ORDERED: MORPHINE 2 MG/ML 1ML VIAL IV PRN ×2 (17:55→18:10)
[2022-01-15] MEDS ORDERED: ONDANSETRON 4MG 2ML VIAL IV ONE (17:55)
[2022-01-15] MEDS ORDERED: ONDANSETRON 4MG 2ML VIAL IV PRN (18:10)
[2022-01-15] MEDS: NS 1,000 ML IV SCH (18:10)
[2022-01-15] MEDS ORDERED: hydrALAZINE 20MG/ML 1ML VIAL (J0360 PER 20MG) IV PRN (18:15)
[2022-01-15 19:05] LABS: CK-MB VALUE MASS < 1.0 NG/ML (<3.6); CPK CREATINE PHOSPHOKINASE 68 U/L (26-192); MB/CK RELATIVE INDEX 1.47 (< OR =4)
[2022-01-15] MEDS ORDERED: HOME MED LIST COMPLETE! XX SCH (19:05)
[2022-01-15] MEDS: PIPERACILLIN/TAZOBACTAM SOD 3.375 GM in D5W MINI-BAG PLUS 50 ML IV SCH (22:00)
[2022-01-16] VITALS (8 sets, daily range): BP systolic 122–160; BP diastolic 64–88
[2022-01-16] MEDS: DOCUSATE SODIUM 100MG CAPSULE PO SCH ×3 (00:17→21:42)
[2022-01-16] MEDS: PIPERACILLIN/TAZOBACTAM SOD 3.375 GM in D5W MINI-BAG PLUS 50 ML IV SCH ×4 (04:08→21:42)
[2022-01-16 04:16] LABS: BASO % 0.2 % (0.0-1.0); EOS # 0.1 10^3/uL (0.0-0.5); EOS % 0.6 % (0.0-3.0); HEMOGLOBIN 12.5 g/dl (12.0-15.5); LYMPH # 2.1 10^3/uL (1.5-5.0); LYMPH % 14.8 % (24.0-44.0); MEAN CORPUSCULAR HEMOGLOBIN 29.4 pg (27.0-33.0); MEAN CORPUSCULAR HGB CONC 33.8 g/dl (32.0-36.5); MEAN CORPUSCULAR VOLUME 87.1 fl (80.0-96.0); MONO # 0.8 10^3/uL (0.0-0.8); MONO % 5.8 % (2.0-8.0); NEUTROPHILS % 78.2 % (36.0-66.0); PLATELET COUNT, AUTOMATED 278 10^3/uL (150-450); RED BLOOD COUNT 4.25 10^6/uL (4.00-5.40); WHITE BLOOD COUNT 14.1 10^3/uL (4.0-10.0)
[2022-01-16 04:48] LABS: ALBUMIN 3.6 GM/DL (3.2-5.2); ALT/SGPT 22 U/L (12-78); BILIRUBIN,TOTAL 1.5 MG/DL (0.2-1.0); BLOOD UREA NITROGEN 6 MG/DL (7-18); CALCIUM LEVEL 8.5 MG/DL (8.5-10.1); CARBON DIOXIDE LEVEL 25 MEQ/L (21-32); CHLORIDE LEVEL 103 MEQ/L (98-107); CREATININE FOR GFR 0.62 MG/DL (0.55-1.30); GLOMERULAR FILTRATION RATE > 60.0 (>58); GLUCOSE, FASTING 137 MG/DL (70-100); POTASSIUM SERUM 3.3 MEQ/L (3.5-5.1); SODIUM LEVEL 136 MEQ/L (136-145)
[2022-01-16] MEDS: KCL 10MEQ/100ML SWI (KRUN) 10 MEQ in IV 1 EA IV SCH ×3 (10:26→12:44)
[2022-01-16] MEDS: NS 1,000 ML IV SCH (12:18)
[2022-01-16 14:42] LABS: URINE PREG TEST NEGATIVE (NEGATIVE)
[2022-01-16] MEDS ORDERED: BUPIVACAINE/EPIN 0.25% 30 ML VIAL As Ordered ONE (15:16)
[2022-01-16] MEDS ORDERED: ISOVUE-300 61% 50ML VIAL As Ordered ONE (15:17)
[2022-01-16] MEDS ORDERED: ZOSYN 3.375GM VIAL As Ordered ONE (16:09)
[2022-01-16] MEDS ORDERED: propofoL 200 MG/20 ML VIAL As Ordered ONE (16:24)
[2022-01-16] MEDS ORDERED: ONDANSETRON 4MG 2ML VIAL As Ordered ONE (16:24)
[2022-01-16] MEDS ORDERED: fentaNYL 250 MCG/5 ML INJECTION As Ordered ONE (16:24)
[2022-01-16] MEDS ORDERED: SUGAMMADEX SODIUM 500 MG/5 ML VIAL (BRIDION) As Ordered ONE (16:24)
[2022-01-16] MEDS ORDERED: dexameTHASONE 4 MG/ML 1ML VIAL (J1100 PER 1MG) As Ordered ONE (16:24)
[2022-01-16] MEDS ORDERED: LIDOCAINE 2% 100MG/5ML SDV (FOR ANES.) As Ordered ONE (16:24)
[2022-01-16] MEDS ORDERED: METOCLOPRAMIDE INJ 10MG/2ML VIAL (J2765 PER 1) As Ordered ONE (16:24)
[2022-01-16] MEDS ORDERED: ROCURONIUM BROMIDE 50 MG/5 ML VIAL As Ordered ONE ×2 (16:24→16:39)
[2022-01-16] MEDS ORDERED: MIDAZOLAM INJ 2MG/2ML VIAL (J2250 PER 1MG) As Ordered ONE (16:24)
[2022-01-16] MEDS ORDERED: PHENYLephrine 500MCG 5ML (100MCG/ML) SYRINGE As Ordered ONE (16:24)
[2022-01-16] MEDS ORDERED: ACETAMINOPHEN 1000MG 100ML IV BTL (OFIRMEV) (J0131 PER 10MG) As Ordered ONE (16:24)
[2022-01-16] MEDS ORDERED: KETOROLAC 60MG 2ML VIAL As Ordered ONE (16:26)
[2022-01-16] MEDS ORDERED: HYDROmorphone HCL 2MG/ML 1ML VIAL As Ordered ONE (16:45)
[2022-01-16] MEDS ORDERED: LR 1,000 ML IV SCH (17:35)
[2022-01-16] MEDS ORDERED: ONDANSETRON 4MG 2ML VIAL IV PRN (17:35)
[2022-01-16] MEDS ORDERED: oxyCODONE 5MG TAB PO PRN (17:35)
[2022-01-16] MEDS ORDERED: fentaNYL 100 MCG/2 ML INJECTION IV PRN (17:35)
[2022-01-16] MEDS: KETOROLAC 30 MG/ML 1ML VIAL IV SCH (19:09)
[2022-01-16] MEDS ORDERED: ENOXAPARIN 40MG/0.4ML SYRINGE (J1650 PER 10MG) SC SCH (21:00)
[2022-01-17 00:07] VITALS: BP 148/62
[2022-01-17 04:15] VITALS: BP 140/82
[2022-01-17] MEDS: PIPERACILLIN/TAZOBACTAM SOD 3.375 GM in D5W MINI-BAG PLUS 50 ML IV SCH ×2 (04:37→09:31)
[2022-01-17] MEDS: KETOROLAC 30 MG/ML 1ML VIAL IV SCH ×2 (05:58)
[2022-01-17 06:07] LABS: BASO % 0.2 % (0.0-1.0); EOS % 0.1 % (0.0-3.0); HEMATOCRIT 31.7 % (36.0-47.0); HEMOGLOBIN 10.5 g/dl (12.0-15.5); LYMPH # 1.2 10^3/uL (1.5-5.0); LYMPH % 9.6 % (24.0-44.0); MEAN CORPUSCULAR HEMOGLOBIN 29.8 pg (27.0-33.0); MEAN CORPUSCULAR HGB CONC 33.1 g/dl (32.0-36.5); MEAN CORPUSCULAR VOLUME 90.1 fl (80.0-96.0); MONO # 0.7 10^3/uL (0.0-0.8); MONO % 5.4 % (2.0-8.0); NEUTROPHILS # 10.8 10^3/uL (1.5-8.5); NEUTROPHILS % 84.2 % (36.0-66.0); PLATELET COUNT, AUTOMATED 239 10^3/uL (150-450); RED BLOOD COUNT 3.52 10^6/uL (4.00-5.40); WHITE BLOOD COUNT 12.9 10^3/uL (4.0-10.0)
[2022-01-17 06:41] LABS: ALBUMIN 3.1 GM/DL (3.2-5.2); ALT/SGPT 30 U/L (12-78); BILIRUBIN,TOTAL 1.3 MG/DL (0.2-1.0); BLOOD UREA NITROGEN 5 MG/DL (7-18); CALCIUM LEVEL 7.7 MG/DL (8.5-10.1); CARBON DIOXIDE LEVEL 26 MEQ/L (21-32); CHLORIDE LEVEL 106 MEQ/L (98-107); CREATININE FOR GFR 0.55 MG/DL (0.55-1.30); GLOMERULAR FILTRATION RATE > 60.0 (>58); GLUCOSE, FASTING 146 MG/DL (70-100); MAGNESIUM LEVEL 2.1 MG/DL (1.8-2.4); POTASSIUM SERUM 3.6 MEQ/L (3.5-5.1); SODIUM LEVEL 136 MEQ/L (136-145); TOTAL PROTEIN 6.6 GM/DL (6.4-8.2)
[2022-01-17] MEDS: NS 1,000 ML IV SCH (07:28)
[2022-01-17 08:00] VITALS: BP 114/58
[2022-01-17] MEDS ORDERED: CIPR-249 PO (08:52)
[2022-01-17] MEDS ORDERED: METR-265 PO (08:52)
[2022-01-17] MEDS ORDERED: ACET1TAB55 PO (08:52)
[2022-01-17] MEDS: DOCUSATE SODIUM 100MG CAPSULE PO SCH (09:30)
[2022-01-17 12:00] VITALS: BP 124/60
== END 2022-01-17 13:12 | disposition home or self-care (01) | DRG 263 ==
LOC: M ED 14:23 → ENRESERV 23:11 → M PCU 23:58
PROVIDERS: ADMIT Internal Medicine; ATTEND Internal Medicine
PROC: 0FT44ZZ Resection of Gallbladder, Percutaneous Endoscopic Approach (ICD-10-PCS; principal; 2022-01-16 16:30)
DX: K81.0 Acute cholecystitis (principal); I16.0 Hypertensive urgency; E66.9 Obesity, unspecified; Z20.822 Contact with and (suspected) exposure to COVID-19; I10 Essential (primary) hypertension